=== PATIENT | female | born 2000 | race Caucasian/White ===

== ENCOUNTER 2021-11-12 02:10 | Emergency (ER) | payer SELFPAY ==
[2021-11-12] MEDS ORDERED: Ketamine 50 MG/ML (10ML VIAL) ONE (02:21)
== END 2021-11-12 07:43 | disposition home or self-care (01) ==
LOC: ERS 02:10
DX: F10.929 Alcohol use, unspecified with intoxication, unspecified (principal)
CPT/HCPCS: 70450; 96374